=== PATIENT | female | born 1990 | race Two or more races ===

== ENCOUNTER 2024-06-30 16:52 | Emergency (ER) | payer MEDICAID, SELFPAY ==
[2024-06-30 16:53] VITALS: BMI 32.0
[2024-06-30 17:27] VITALS: BP 121/78; PULSE 96; RESP 16; TEMP 36.7; O2SAT 100
--- NOTE | 2024-06-30 17:33 | EKG_ITS ---
[facility] Test Date: 2024-06-30 Pat Name: LISA ROSE Department: Room: - Gender: Female [employer] Ad[employer]: : [id number] Requested By: Dony Avalos Order Number: [id number] Reading MD: Dony Avalos Measurements Intervals [place] Rate: 80 P: 58 FL: 161 QRS: 58 QRSD: 107 T: 21 QT: 374 QTc: 434 Interpretive Statements SINUS RHYTHM Compared to ECG 03/25/2021 09:27:26 No significant changes /store/S0/[id number]
--- NOTE | 2024-06-30 17:34 | PD.EDRME ---
Rapid Medical Screening Exam RME Arrival date/time: 06/30/24 16:52 33-year-old female with no known medical history presents to the emergency room with a chief complaint of dizziness 1 hour ago. Patient states that for the last 3 days she has also had bilateral ear pain. I have greeted and performed a focused initial assessment of this patient. A comprehensive ED assessment and evaluation of the patient, analysis of all test results, and completion of the medical decision making process will be conducted by additional ED providers. Chief Complaint: Dizziness Vital signs: Vital Signs Temperature 98.1 F 06/30/24 17:27 Pulse Rate 96 06/30/24 17:27 Respiratory Rate 16 06/30/24 17:27 Blood Pressure 121/78 06/30/24 17:27 Pulse Oximetry (%) 100 06/30/24 17:27 Oxygen Delivery Method Room Air 06/30/24 17:27 Vital signs reviewed by provider: Yes
[2024-06-30] MEDS: MECLIZINE HCL 25 MG TABLET PO (17:52)
[2024-06-30 17:58] LABS: Basophils % (Auto) 1 % (0-2.5); Eosinophils # (Auto) 0.1 Thou/mm3 (0.0-0.5); Eosinophils % (Auto) 1 % (0-10); Hematocrit 38.9 % (36.0-46.0); Hemoglobin 13.5 g/dL (12.0-16.0); Immature Granulocytes % (Auto) 0 % (0-0); Immature Granulocytes Auto 0.03 Thou/mm3 (0.00-0.00); Lymphocytes # (Auto) 2.9 Thou/mm3 (1.0-4.8); Lymphocytes % (Auto) 35 % (10-50); Mean Corpuscular HGB Conc 34.7 g/dl (31.0-37.0); Mean Corpuscular Hemoglobin 30.7 pg (25.0-35.0); Mean Corpuscular Volume 88 fL (80-100); Monocytes # (Auto) 0.6 Thou/mm3 (0.0-0.8); Monocytes % (Auto) 8 % (0-12); Neutrophils # (Auto) 4.6 Thou/mm3 (1.8-7.7); Neutrophils % (Auto) 56 % (37-80); Nucleated Red Blood Cell % 0 /100 WBC (0); Platelet Count 266 Thou/mm3 (140-440); RDW Standard Deviation 42.3 fL (36.4-46.3); White Blood Count 8.3 Thou/mm3 (3.6-11.0)
[2024-06-30 18:17] LABS: B-Type Natriuretic Peptide < 20 pg/mL (0-100)
[2024-06-30 18:19] LABS: Alanine Aminotransferase 21 U/L (10-49); Albumin, Serum 4.2 gm/dL (3.5-5.0); Albumin/Globulin Ratio 1.6 (1.2-2.2); Alkaline Phosphatase 97 U/L (46-116); Anion Gap 9 (7-16); Aspartate Amino Transferase 18 U/L (0-34); BUN/Creatinine Ratio 14 Ratio (12-20); Bilirubin,Total 0.7 mg/dL (0.3-1.2); Blood Urea Nitrogen 10 mg/dL (9-23); Calcium 8.9 mg/dL (8.3-10.6); Calcium (Corrected) 8.9 mg/dL (8.5-10.1); Carbon Dioxide 24.5 mMol/L (20.0-31.0); Chloride 107 mMol/L (98-107); Creatinine (Component) 0.7 mg/dL (0.6-1.3); Estimated Creatinine Clearance 109.5 mL/min (>60); Globulin 2.7 gm/dL (2.3-3.5); Glucose 94 mg/dL (74-106); Osmolality,Calculated 278 (275-295); Potassium 3.7 mMol/L (3.4-5.1); Sodium 140 mMol/L (136-145); Total Protein 6.9 gm/dL (5.7-8.2); Troponin I < 0.002 ng/mL (0.0-0.045); eGFR > 60 See Note
[2024-06-30 19:52] LABS: Collection Type, Urine Clean Catch
[2024-06-30 19:57] LABS: Bilirubin,Urine Negative (Negative); Blood,Urine 1+ (Negative); Clarity,Urine Clear (Clear/Hazy); Color,Urine Lt-Yellow (Lt Yel-Yel); Glucose, Urine Negative (Negative); Ketones,Urine 1+ (Negative); Leukocyte Esterase,Urine Negative (Negative); Nitrite,Urine Negative (Negative); PH,Urine 6.5 (5.0-7.0); Protein,Urine Negative (Neg - Trace); RBC,Urine 8 /hpf (0-3); Specific Gravity,Urine 1.017 (1.001-1.035); Squamous Epithelial Cell,Urine 2 /hpf (0-5); Urobilinogen,Urine Negative mg/dL (0.0-1.0); WBC,Urine 1 /hpf (0-5)
--- NOTE | 2024-06-30 20:05 | PD.EDDIZZY ---
ED Dizzyness RME/HPI General Chief Complaint: Dizziness Stated Complaint: DIZZINESS TODAY Time Seen by Provider: 06/30/24 18:27 Arrival date/time: 06/30/24 16:52 RME / HPI RME / HPI Narrative: 06/30/24 16:52 33-year-old female with no known medical history presents to the emergency room with a chief complaint of dizziness 1 hour ago. Patient states that for the last 3 days she has also had bilateral ear pain. I have greeted and performed a focused initial assessment of this patient. A comprehensive ED assessment and evaluation of the patient, analysis of all test results, and completion of the medical decision making process will be conducted by additional ED providers. This section includes all my notes and documentations, including HPI, PE, and ED course. Cyrus Ramírez MD HPI: 33-year-old female here to be evaluated with dizziness that started several hours ago, currently much better, almost resolved. She describes spinning sensation with nausea, worse with movement. Had similar episode a couple of years ago after a long plane ride. She also reports dysuria and suprapubic pain. No other complaints. ROS: All negative except as documented in HPI. Physical Exam: General: Alert and oriented. No acute distress. Eyes: Conjunctivae and lids clear. EOMI. PERRL. ENT: No nasal congestion. Pharynx normal. Tympanic membrane normal bilaterally. Neck: Supple. Heart: RRR. Lungs: No respiratory distress. Good air movement. No rhonchi, wheezing, rales. Abdomen: Soft and nontender. Normal bowel sounds. No distension. No rebound or guarding. Back: No CVA tenderness. Legs: No clubbing, cyanosis, edema. Skin: Warm and dry. Neuro: Alert and oriented X 3. Cranial Nerves II-XII grossly intact. No peripheral motor deficits. I reviewed all diagnostic test results. Blood tests and urine tests unremarkable, except possible UTI. At this point, diagnoses include vertigo and UTI. Recommended a trial of treatment at home. Based on my best medical judgment, made decision no further evaluation or treatment indicated at this time. Patient understands and agrees to the discharge instructions customized and printed, see below. Discharge instructions from Dr. Ramírez: -- Your severe symptoms were due to vertigo.? This is an inner ear problem that makes you feel like you are drunk or seasick.? See attached handout. -- Use scopolamine patch and/or meclizine for your severe symptoms. --Your UTI may have triggered it. Take cefdinir as prescribed. -- And Zofran for nausea/vomiting.? And increase oral fluid to prevent dehydration.? Maintain clear urine.? If dark or yellow, increase oral fluid. -- And do everything very slowly.? Including moving your head.? And when you sit up or stand up, wait a minute before you progress.? -- See your private doctor on 07/04/2024 if not completely better. -- Seek immediate medical care with worsening or with any concerns. Cyrus Ramírez MD Related Data Previous Rx's ?Medication ?Instructions ?Recorded meclizine 50 mg tablet 50 mg PO BID PRN dizziness #30 tabs 01/04/23 cefdinir 300 mg capsule 300 mg PO BID #14 caps 06/30/24 meclizine 25 mg tablet 25 mg PO BID PRN dizziness #20 tabs 06/30/24 ondansetron 4 mg disintegrating 4 mg PO TID PRN nausea and 06/30/24 tablet vomiting 30 days #10 tabs scopolamine base 1 mg over 3 days 1 mg topical .q72 hours PRN 06/30/24 transdermal patch (Transderm-Scop) dizziness or vertigo #4 ea Allergies Allergy/AdvReac Type Severity Reaction Status Date / Time No Known Allergies Allergy Verified 06/30/24 16:53 Course Quality Measures none Orders Category Date Time Status EKG (ED ONLY) *Do not use* NOW Care 06/30/24 17:33 Completed EKG (ED Only) Stat Exams 06/30/24 17:33 Draft BNP [B-Type Natriuretic Peptide] Stat Lab 06/30/24 17:45 Completed CBC Stat Lab 06/30/24 17:45 Completed Comprehensive Metabolic Panel Stat Lab 06/30/24 17:45 Completed Troponin I Stat Lab 06/30/24 17:45 Completed Urinalysis Stat Lab 06/30/24 19:35 Completed Urine Culture Stat Lab 06/30/24 19:35 Received Meclizine HCl [Antivert] Med 06/30/24 17:33 Discontinued 25 mg PO X1 ONE Vital Signs Vital signs: Vital Signs Temperature 98.1 F 06/30/24 17:27 Pulse Rate 96 06/30/24 17:27 Respiratory Rate 16 06/30/24 17:27 Blood Pressure 121/78 06/30/24 17:27 Pulse Oximetry (%) 100 06/30/24 17:27 Oxygen Delivery Method Room Air 06/30/24 17:27 Dizziness Patient data External records reviewed:: [facility] previous records Clinical information provided by:: patient Social determinants that could affect healthcare access:: none Patient has the following chronic illnesses:: Vertigo How is presenting disease/condition affected by chronic disease/condition?: exacerbated by Evaluation data The following diagnostics were reviewed and interpreted by me:: lab results and EKG tracing(s) Lab and/or radiology exams considered but not ordered:: None Interpretation Summary: Normal diagnostics Medications / Prescriptions Medications or Prescriptions considered but not ordered:: None Medication administrations:: Medication Administration History Discontinued Medications Meclizine HCl (Meclizine Hcl 25 Mg Tablet) 25 mg PO X1 ONE Stop: 06/30/24 17:34 Last Admin: 06/30/24 17:52 Dose: 25 mg Documented By: REX Meclizine Consultations Consultation(s) initiated? (list below): No Diagnosis Dizziness Differential Diagnosis: adverse reaction to drug, benign paroxysmal positional vertigo, orthostatic hypotension and vertebral basilar insufficiency Most likely diagnosis given after review of the tests above:: Vertigo Admission Indicated Admission indicated?: not indicated Explain why admission is indicated or not indicated:: There was no indication for admission. Admission Request Was there a request for admission?: No Disposition Plan Disposition Plan: Discharge Discharge Attestation Discharge Attestation: The patient and all family members were given an opportunity to ask questions and understood the discharge instructions. Discharge instructions specifically effects, indications for sooner follow up or return to the emergency department, and the expected course of current diagnosis. Patient condition: Stable Discharge Plan Plan Patient Disposition: HOME (Self Care) Prescriptions/Referrals Prescriptions/Med Rec: New meclizine 25 mg tablet 25 mg PO BID PRN (Reason: dizziness) Qty: 20 0RF scopolamine base [Transderm-Scop] 1 mg over 3 days patch 3 day 1 mg topical .q72 hours PRN (Reason: dizziness or vertigo) Qty: 4 0RF ondansetron 4 mg tablet,disintegrating 4 mg PO TID PRN (Reason: nausea and vomiting) 30 Days Qty: 10 0RF cefdinir 300 mg capsule 300 mg PO BID Qty: 14 0RF No Action meclizine 50 mg tablet 50 mg PO BID PRN (Reason: dizziness) Qty: 30 0RF Referrals: No Primary/Family,Physician [Primary Care Provider] - In 1 week Problem List Clinical Impression: Vertigo, UTI (urinary tract infection) Patient/Caregiver Discharge Instructions Discharge Activity: activity as tolerated Education Materials: ED CYSTITIS Female Adult, ED Vertigo, Unspecified Additional Instructions: Discharge instructions from Dr. Ramírez: -- Your severe symptoms were due to vertigo.? This is an inner ear problem that makes you feel like you are drunk or seasick.? See attached handout. -- Use scopolamine patch and/or meclizine for your severe symptoms. --Your UTI may have triggered it. Take cefdinir as prescribed. -- And Zofran for nausea/vomiting.? And increase oral fluid to prevent dehydration.? Maintain clear urine.? If dark or yellow, increase oral fluid. -- And do everything very slowly.? Including moving your head.? And when you sit up or stand up, wait a minute before you progress.? -- See your private doctor on 07/04/2024 if not completely better. -- Seek immediate medical care with worsening or with any concerns. Print Language: [place] Stand Alone Forms: [facility]evin Award Info., Patient Portal Info Letter
== END 2024-06-30 20:16 | disposition home or self-care (01) ==
PROVIDERS: Nurse Practitioner Family; Emergency Provider Emergency Medicine
DX: N39.0 Urinary tract infection, site not specified (principal); R42 Dizziness and giddiness
CPT/HCPCS: 36415; 80053; 81001; 83880; 84484; 85025; 87086; 93005; 99283; A9270

== ENCOUNTER 2024-08-22 15:30 | Emergency (ER) | payer MEDICAID, SELFPAY ==
[2024-08-22 15:37] VITALS: BP 119/73; PULSE 106; RESP 20; TEMP 36.9; O2SAT 96
--- NOTE | 2024-08-22 16:13 | XR_ITS ---
Examination: Abdomen sonogram, Limited Date and time of exam: August 22, 2024 1658 hours INDICATIONS: Onset epigastric pain beginning 5 days ago Technique: Real-time boyer scale transabdominal sonographic images of the upper abdomen obtained. Findings: Normal gallbladder. Normal common bile duct 0.3 cm. Pancreatic head 2.1 cm Liver 13.6 cm fatty liver Normal hepatopedal portal venous flow Patent IVC. IMPRESSION: Normal gallbladder. Fatty liver
[2024-08-22 16:36] LABS: Basophils % (Auto) 0 % (0-2.5); Eosinophils # (Auto) 0.1 Thou/mm3 (0.0-0.5); Eosinophils % (Auto) 1 % (0-10); Hematocrit 34.9 % (36.0-46.0); Hemoglobin 12.4 g/dL (12.0-16.0); Immature Granulocytes % (Auto) 0 % (0-0); Immature Granulocytes Auto 0.01 Thou/mm3 (0.00-0.00); Lymphocytes # (Auto) 2.4 Thou/mm3 (1.0-4.8); Lymphocytes % (Auto) 27 % (10-50); Mean Corpuscular HGB Conc 35.5 g/dl (31.0-37.0); Mean Corpuscular Hemoglobin 31.6 pg (25.0-35.0); Mean Corpuscular Volume 89 fL (80-100); Monocytes # (Auto) 0.6 Thou/mm3 (0.0-0.8); Monocytes % (Auto) 6 % (0-12); Neutrophils # (Auto) 5.9 Thou/mm3 (1.8-7.7); Neutrophils % (Auto) 66 % (37-80); Nucleated Red Blood Cell % 0 /100 WBC (0); Platelet Count 268 Thou/mm3 (140-440); RDW Standard Deviation 42.8 fL (36.4-46.3); Red Blood Count 3.93 Miln/mm3 (4.00-5.20)
[2024-08-22 16:43] LABS: Alanine Aminotransferase 104 U/L (10-49); Albumin, Serum 4.2 gm/dL (3.5-5.0); Alkaline Phosphatase 92 U/L (46-116); Anion Gap 10 (7-16); Aspartate Amino Transferase 50 U/L (0-34); BUN/Creatinine Ratio 19 Ratio (12-20); Bilirubin,Total 0.8 mg/dL (0.3-1.2); Blood Urea Nitrogen 13 mg/dL (9-23); Calcium 8.8 mg/dL (8.3-10.6); Calcium (Corrected) 8.8 mg/dL (8.5-10.1); Carbon Dioxide 24.7 mMol/L (20.0-31.0); Chloride 105 mMol/L (98-107); Creatinine (Component) 0.7 mg/dL (0.6-1.3); Globulin 2.1 gm/dL (2.3-3.5); Glucose 95 mg/dL (74-106); Lipase 35 U/L (12-53); Osmolality,Calculated 279 (275-295); Potassium 3.9 mMol/L (3.4-5.1); Sodium 140 mMol/L (136-145); Total Protein 6.3 gm/dL (5.7-8.2); Troponin I < 0.002 ng/mL (0.0-0.045); eGFR > 60 See Note
--- NOTE | 2024-08-22 16:44 | EDNOTE_ITS ---
ED Abdominal Pain RME/HPI General Chief Complaint: Abdominal Pain Stated complaint: UPPER ABD PAIN RADIATING TO R SIDE Time seen by provider: 08/22/24 15:31 Arrival date/time: 08/22/24 15:30 RME / HPI RME / HPI narrative: 33-year-old female patient came in for evaluation regarding epigastric pain. Onset of symptoms for the last several days as worsening getting constant epigastric pain, described as dull ache, severity moderate. Denies any vomiting fever diarrhea constipation dysuria hematuria or other complaints. Patient pain is worse after eating a lot of spicy food Related Data Previous Rx's ?Medication ?Instructions ?Recorded meclizine 50 mg tablet 50 mg PO BID PRN dizziness # 30 tabs 01/04/23 cefdinir 300 mg capsule 300 mg PO BID #14 caps 06/30 meclizine 25 mg tablet 25 mg PO BID PRN dizziness # 20 tabs 06/30/24 scopolamine base 1 mg over 3 days 1 mg topical .q72 ho urs PRN 06/30/24 transdermal patch (Transderm-Scop) dizziness or vertig o #4 ea dicyclomine 20 mg tablet 20 mg PO TID PRN abdominal p ain 08/22/24 #30 tabs pantoprazole 40 mg tablet,delayed 40 mg PO QDAY #20 ta bs 08/22/24 release (Protonix) Allergies Allergy/AdvReac Type Severity Reaction Status Date / Time No Known Allergies Allergy Verified 08/22/24 15:31 Review of Systems Review of Systems Narrative Review of Systems: Review of system reviewed and within normal limits except mentioned in HPI ED Exam Narrative Physical exam: VITAL SIGNS: Reviewed. GENERAL APPEARANCE: Alert and interactive, follows commands, no acute distress, HEAD AND FACE: Non-traumatic. ENT: PERRL, pink conjunctivitis, eyelid no trauma, Mucous membrane moist. NECK: Supple, nontender, no nuchal rigidity. CHEST: No tenderness, no crepitus, no paradoxical movement, no retractions. LUNGS: Clear, well ventilated, symmetric, no rales, no wheezing, no ronchi, no stridor, good breath sounds bilaterally. HEART: Regular rate, regular rhythm, no murmur, no gallops. ABDOMEN: Soft, positive bowel sounds, nondistended, no guarding, epigastric tenderness, no rebound, no masses, RECTAL: Deferred. GENITAL: Deferred. NEUROLOGICAL: Gross motor function intact sensory function intact, Appropriate for age. MUSCULOSKELETAL: low back nontender, full range of motion. EXTREMITIES: Nontender, full range of motion. SKIN: Color pink, dry, no rash, no lacerations, no abrasions, no contusions. LYMPHATICS: Deferred. Course Quality Measures none Orders Category Date Time Status US gall bladder Stat Exams 08/22/24 16:13 Completed CBC Stat Lab 08/22/24 16:16 Completed Comprehensive Metabolic Panel Stat Lab 08/22/24 16:16 Completed HCG Qualitative,Urine Stat Lab 08/22/24 16:46 Completed Lipase Stat Lab 08/22/24 16:16 Completed Troponin I Stat Lab 08/22/24 16:16 Completed UA, C/S IF [Urinalysis, C/S if Indicated] Stat Lab 08/22/24 16:46 Completed Urine Culture Stat Lab 08/22/24 16:46 Received Metoclopramide [Reglan] Med 08/22/24 16:13 Discontinued 10 mg PO X1 ONE Vital Signs Vital signs: Vital Signs Temperature 98.4 F 08/22/24 15:37 Pulse Rate 106 H 08/22/24 15:37 Respiratory Rate 20 08/22/24 15:37 Blood Pressure 119/73 08/22/24 15:37 Pulse Oximetry (%) 96 08/22/24 15:37 Oxygen Delivery Method Room Air 08/22/24 15:37 Abdominal Pain MDM MDM Narrative MDM Narrative:: 33-year-old female patient came in for evaluation regarding epigastric pain. Onset of symptoms for the last several days as worsening getting constant epigastric pain, described as dull ache, severity moderate. Denies any vomiting fever diarrhea constipation dysuria hematuria or other complaints. Patient pain is worse after eating a lot of spicy food Patient CBC came back unremarkable no sign of leukocytosis. CMP showed slightly elevated AST and ALT urinalysis no UTI Ultrasound of gallbladder show anything abnormal. Patient will be sent home on Protonix. And was advised to follow-up closely with PCP and return to emergency room for worsening of symptoms. Patient data External records reviewed:: None Clinical information provided by:: patient Social determinants that could affect healthcare access:: none Patient has the following chronic illnesses:: None How is presenting disease/condition affected by chronic disease/condition?: no chronic disease Evaluation data The following diagnostics were reviewed and interpreted by me:: lab results and radiology exam(s) Lab and/or radiology exams considered but not ordered:: None Interpretation Summary: See results MDM Medications / Prescriptions Medications or Prescriptions considered but not ordered:: none Medication administrations:: Medication Administration History Discontinued Medications Metoclopramide HCl (Metoclopramide 5 Mg Tablet) 10 mg PO X1 ONE Stop: 08/22/24 16:14 Last Admin: 08/22/24 16:18 Dose: Not Given Documented By: OA Non-Admin Reason: Patient Refused Patient refused Consultations Consultation(s) initiated? (list below): No Diagnosis Differential diagnosis abdominal pain: abdominal pain, pancreatitis and small bowel obstruction Most likely diagnosis given after review of the tests above:: Abdominal pain, gastritis Admission Indicated Admission indicated?: not indicated Admission Request Was there a request for admission?: No Disposition Plan Disposition Plan: Discharge Discharge Attestation Discharge Attestation: The patient was given an opportunity to ask questions and understood the discharge instructions. Discharge instructions specifically effects, indications for sooner follow up or return to the emergency department, and the expected course of current diagnosis. Patient condition: Stable Discharge Plan Plan Patient Disposition: HOME (Self Care) Discharge Disposition comment: Stable Prescriptions/Referrals Prescriptions/Med Rec: New pantoprazole [Protonix] 40 mg tablet,delayed release (DR/EC) 40 mg PO QDAY Qty: 20 0RF dicyclomine 20 mg tablet 20 mg PO TID PRN (Reason: abdominal pain) Qty: 30 0RF No Action meclizine 50 mg tablet 50 mg PO BID PRN (Reason: dizziness) Qty: 30 0RF meclizine 25 mg tablet 25 mg PO BID PRN (Reason: dizziness) Qty: 20 0RF scopolamine base [Transderm-Scop] 1 mg over 3 days patch 3 day 1 mg topical .q72 hours PRN (Reason: dizziness or vertigo) Qty: 4 0RF cefdinir 300 mg capsule 300 mg PO BID Qty: 14 0RF Referrals: No Primary/Family,Physician [Primary Care Provider] - In 1 week Problem List Clinical Impression: Abdominal pain, Gastritis Patient/Caregiver Discharge Instructions Discharge Activity: activity as tolerated Education Materials: Abdominal Pain, ED Gastritis (Adult) Additional Instructions: Thank you for the opportunity for serving you today. You are stable for discharged . You are advised to: Follow-up with your PCP in 1 to 2 days Return to ED for worsening of symptoms, worsening abdominal pain, vomiting, fever Increase oral fluids Take medication as prescribed Print Language: [place] Stand Alone Forms: [employer] Award Info., Patient Portal Info Letter
[2024-08-22 16:54] LABS: Collection Type, Urine Clean Catch
[2024-08-22 16:57] LABS: HCG Qualitative,Urine Negative
[2024-08-22 17:03] LABS: Bacteria,Urine 1+; Bilirubin,Urine Negative (Negative); Blood,Urine 1+ (Negative); Clarity,Urine Clear (Clear/Hazy); Color,Urine Colorless (Lt Yel-Yel); Glucose, Urine Negative (Negative); Ketones,Urine 2+ (Negative); Leukocyte Esterase,Urine Negative (Negative); Nitrite,Urine Negative (Negative); Protein,Urine Negative (Neg - Trace); RBC,Urine 2 /hpf (0-3); Specific Gravity,Urine 1.011 (1.001-1.035); Squamous Epithelial Cell,Urine 2 /hpf (0-5); Urobilinogen,Urine Negative mg/dL (0.0-1.0); WBC,Urine 2 /hpf (0-5)
[2024-08-22 17:06] LABS: Culture Indicated,Urine Yes
== END 2024-08-22 19:13 | disposition home or self-care (01) ==
PROVIDERS: Nurse Practitioner Primary Care; Emergency Provider Emergency Medicine
DX: K29.70 Gastritis, unspecified, without bleeding (principal)
CPT/HCPCS: 36415; 76705; 80053; 81001; 81025; 83690; 84484; 85025; 87086; 99284

== ENCOUNTER → 2024-10-21 | Outpatient (CLI) | payer MEDICAID, SELFPAY ==
[2024-10-21 13:14] LABS: HCG Qualitative,Urine Negative
--- NOTE | 2024-10-21 14:57 | XR_ITS ---
Examination: CT abdomen and pelvis without contrast. Coronal 3-D reconstructions. Sagittal 2-D reconstructions. Date and time of exam:October 21, 2024 1543 hours Comparison December 29, 2021 INDICATIONS: Epigastric pain pelvic pain beginning 3 months ago, diagnosis acute gastritis, history kidney stones CTDI: vol (mGy): 10.3 DLP: (mGycm): 563 Technique: Axial images of the abdomen have been obtained, 3 mm slice thickness Intravenous contrast material has not been administered. Low dose protocols were performed. One or more of the following dose reduction techniques were used; automated exposure control, adjustment of the mA and/or KV according to patient size, use of iterative reconstruction technique. Findings: No perigastric inflammatory change No focal liver or splenic lesion Contracted gallbladder No pancreatic or adrenal mass Multiple bilateral 1 to 2 mm renal calculi, no hydronephrosis or ureteral calculi. No bowel obstruction Normal appendix No diverticulitis Anteverted uterus, no pelvic mass Urinary bladder intact The osseous structures are intact IMPRESSION: No findings of gastritis Multiple bilateral 1 to 2 mm renal calculi, no hydronephrosis or ureteral calculi Normal appendix
== END | disposition home or self-care (01) ==
PROVIDERS: PCP Internal Medicine; Referring Provider Internal Medicine; Visit Provider Internal Medicine
DX: N20.0 Calculus of kidney (principal); Z32.00 Encounter for pregnancy test, result unknown
CPT/HCPCS: 74176; 81025